=== PATIENT | male | born 1945 | race Caucasian/White ===

== ENCOUNTER 2024-12-21 10:28 | Day surgery (SDC) | payer MEDICARE, BC ==
[2024-12-18 09:19] LABS: MEAN PLATELET VOLUME 6.8 FL (7.4-10.4); PRE OP HEMATOCRIT 40.9 % (42.0-52.0); PRE OP HEMOGLOBIN 14.2 g/dL (14.0-17.9); PRE OP PLATELET COUNT 176 X10'3 (140-440); PRE OP WHITE BLOOD COUNT 5.0 10'3 (4.8-10.8); RED CELL DISTRIBUTION WIDTH 13.4 % (11.5-14.5)
[2024-12-18 09:31] LABS: CREATININE 0.78 MG/DL (0.60-1.10); PRE OP ALT 17 U/L (30-65); PRE OP ANION GAP 5 (8-16); PRE OP AST 21 U/L (10-37); PRE OP BILIRUB, TOTAL 0.6 MG/DL (0.0-1.0); PRE OP GLUCOSE 98 MG/DL (70-104); PRE OP POTASSIUM 4.4 MMOL/L (3.4-5.1); PRE OP SODIUM 142 MMOL/L (135-145); TOTAL CARBON DIOXIDE 32.8 MMOL/L (24-32); eGFR > 90 ML/MIN
[~2024-12-21] VITALS: Ht 177.8 cm; Wt 105.2 kg
[2024-12-21] VITALS (23 sets, daily range): BP systolic 129–154; BP diastolic 72–85; PULSE 54–70; RESP 11–24; TEMP 98.7; O2SAT 91–100
[2024-12-21] MEDS: ceFAZolin 2gm/dext,iso 50mL 50 ML IV ONE (05:30)
[~2024-12-21 10:28] MED LIST: ALLO100T PO; APIX5TAB3 PO; CHOL10006 PO; HYDROmorphone/PF 0.2 MG/ML SYRINGE IV PRN; PHEN37.511 PO; enalaprilat 1.25mg/ml 2ml vial IV PRN; fentaNYL/PF 50MCG/1 ML 2ML syringe IV PRN; labetalol 20mg/4ml (5mg/ml) syringe IV PRN; ondansetron/PF 4mg/2ml inj IV PRN; ringers solution, lacted 1,000 ML IV SCH
[2024-12-21] MEDS: ringers solution, lacted 1,000 ML IV SCH (11:21)
[2024-12-21] MEDS ORDERED: fentaNYL/PF 50MCG/1 ML 2ML syringe ONE (12:03)
[2024-12-21] MEDS ORDERED: glycopyrrolate 0.2mg/ml inj ONE (12:04)
[2024-12-21] MEDS ORDERED: midazolam 1 mg/ML 2ml injection ONE (12:04)
[2024-12-21] MEDS ORDERED: propofol inj 20 ML IV ONE (12:40)
[2024-12-21] MEDS ORDERED: LIDOcaine 1%/PF 5ML 10 MG/ML VIAL ONE (12:40)
[2024-12-21] MEDS ORDERED: LIDOcaine 2% jelly 6ml syringe ***for topical use only ONE (12:41)
[2024-12-21] MEDS ORDERED: BUPIVAcaine 2.5mg/ml inj 50ml vial (contains preservative) ONE (12:42)
[2024-12-21] MEDS ORDERED: LIDOcaine 1% 30ml preserv. free vial ONE (12:42)
[2024-12-21] MEDS ORDERED: BUPIVACAINE liposomal/PF 13.3 MG/ML 10mL vial IM ONE (12:43)
[2024-12-21] MEDS ORDERED: rocuronium 10mg/ml inj IV ONE (12:47)
[2024-12-21] MEDS ORDERED: ondansetron/PF 4mg/2ml inj ONE (12:48)
[2024-12-21] MEDS: BUPIVAcaine/PF 2.5 mg/ml (0.25%) 30ml vial IJ ONE ×2 (12:57)
[2024-12-21] MEDS: BUPIVACAINE liposomal/PF 13.3 MG/ML 10mL vial IM ONE (12:57)
[2024-12-21] MEDS ORDERED: dexamethasone sod phosphate 4mg/ml inj. ONE (12:57)
[2024-12-21] MEDS: LIDOcaine 1% 30ml preserv. free vial IJ ONE (12:57)
[2024-12-21] MEDS ORDERED: acetaminophen 1,000mg/100ml IV 100 ML IV ONE (13:40)
--- NOTE | 2024-12-21 14:07 | OPERATIVE REPORT ---
Operative Report Providers to CC: JOO WEIR MD ~ Date of Procedure: Dec 21, 2024 Pre-Operative Diagnosis: Umbilical hernia Post-Operative Diagnosis 4 cm umbilical hernia Procedure Performed Robotic assisted, laparoscopic 4 cm umbilical hernia repair with mesh Surgeon: Joo Weir MD FACS Tabulating Machine Mechanic None Anesthesiologist: Evert Hernandez Type of Anesthesia: General Findings: 4 cm fascial defect at the level of the umbilicus with no intra-abdominal contents herniated Very thin abdominal midline consistent with rectus diastasis Wound class I Complications None Prosthetics\Implants used: 15 cm coated polyester mesh Estimated Blood Loss: Minimal Specimen Removed: None Description of Procedure: Patient was brought to the operating room and identified by the nursing staff and the attending physician. Patient was placed supine and a general anesthesia was induced. Preoperative antibiotics were given. The abdomen was prepped and draped in the standard sterile fashion. Through a left subcostal stab incision the abdomen was accessed with a Veress needle technique. Abdomen was insufflated without incident. The incision was lengthened to accommodate a 12 mm optical trocar and the abdomen was entered under laparoscopic visualization. The abdomen was surveyed laparoscopically. There was an obvious fascial defect at the level of the umbilicus. No intra-abdominal contents were herniated. Under laparoscopic visualization, robotic trochars were placed in the left lateral and left lower quadrant. The da [employer] robotic arm was docked to the patient and instruments guided intra-abdominally under laparoscopic visualization. The infraumbilical fat pad was mobilized inferiorly to allow adequate space for mesh deployment against the posterior rectus sheath. Hernia sac was mobilized out of the hernia space and left attached to the infraumbilical fat pad. Defect measured 4 cm in diameter. Fascial defect(s) were then reapproximated with running, long-absorbable, 0V lock suture. Good fascial apposition was obtained without significant tension. A coated polyester mesh was then fixed to the anterior abdominal wall with running, absorbable, 2/0, V lock suture. Mesh laid without wrinkles or folds. The mesh measured 15 cm in diameter The da Jes[employer] instruments were then removed and the robot undocked from the patient. Bilateral transversus abdominis plane nerve blocks by injection were then placed under laparoscopic visualization using a combination of Marcaine and Exparel. Absorbable tacking device was used to fix the loose areas of mesh flat against the anterior abdominal wall. The left subcostal trocar was removed and its fascia closed percutaneously with 0 Vicryl suture under laparoscopic visualization. Remaining trochars were removed after the abdomen was allowed to deflate. Skin was closed at all sites with 4-0 Monocryl sutures and dressed with sterile dressings. Patient was awakened and taken to the postanesthesia care unit in stable condition. Counts repoted as correct: Yes JOO WEIR MD Dec 21, 2024 14:07
[2024-12-21] MEDS: morphine 4 MG/ML inj SYRINge IV PRN (15:39)
[2024-12-21] MEDS: oxyCODONE/APAP 5-325mg tablet PO PRN (15:55)
== END 2024-12-21 17:52 | disposition home or self-care (01) ==
LOC: PAS 10:28
PROVIDERS: ATTEND Surgery
DX: K42.9 Umbilical hernia without obstruction or gangrene (principal); E66.01 Morbid (severe) obesity due to excess calories; G47.33 Obstructive sleep apnea (adult) (pediatric); I48.91 Unspecified atrial fibrillation; M10.9 Gout, unspecified; F17.210 Nicotine dependence, cigarettes, uncomplicated; Z86.718 Personal history of other venous thrombosis and embolism; Z79.01 Long term (current) use of anticoagulants; Z79.899 Other long term (current) drug therapy; Z96.659 Presence of unspecified artificial knee joint; Z98.890 Other specified postprocedural states; Z68.33 Body mass index [BMI] 33.0-33.9, adult
CPT/HCPCS: 36415; 49593; 64488; 80053; 82948; 85025; A4215; A4615; A4618; C1713; C1781; J0131; J0666; J1100; J2003; J2250; J2270; J2405; J2704; J2710; J3010; J3490; J7030; J7120; Z7506; Z7508; Z7512; Z7610